=== PATIENT | male | born 1980 | race Caucasian/White ===

== ENCOUNTER 2018-11-22 21:34 | Emergency (ER) | payer MEDICARE ==
--- NOTE | 2018-11-22 21:51 | ER Document Report ---
ED Psych Disorder / Suicide - General Chief Complaint: Accidental Overdose Stated Complaint: POSSIBLE OVERDOSE Time Seen by Provider: 11/22/18 21:50 Mode of Arrival: Stretcher Information source: Parent, Law Enforcement, Emergency Med Personnel Cannot obtain history due to: Intoxicated, Uncooperative Notes: HISTORY OF PRESENT ILLNESS: Patient is a 38-year-old male with a past medical history of chronic substance abuse including methamphetamines and marijuana who presents with acute agitation and combative behavior after "binging on meth for 4 days." Onset: Prior to arrival Provocation: "A lot of meth" Quality: Aggression, agitation Radiation: None Severity: Severe, was given intramuscular Versed and Benadryl by EMS Timing: Constant SI/HI: Unknown Hallucinations: Unknown Current therapist: None Current treatment: None REVIEW OF SYSTEMS: A complete 12 point review of systems is unable to be obtained due to the patient's medical status. His parents at bedside as well as EMS are the only source of information. CONSTITUTIONAL : Denies fever or chills, no sweats. Denies recent illness. EENT: Denies eye, ear, throat, or mouth pain or symptoms. Denies nasal or sinus congestion. CARDIOVASCULAR: Denies chest pain. RESPIRATORY: Denies cough, cold, or chest congestion. Denies shortness of breath, difficulty breathing, or wheezing. GASTROINTESTINAL: Denies abdominal pain. Denies nausea, vomiting, or diarrhea. Denies constipation. GENITOURINARY: Denies difficulty urinating, painful urination, burning, frequency, or blood in urine. FEMALE GENITOURINARY: Denies vaginal bleeding, abnormal or irregular periods. Last menstrual period MUSCULOSKELETAL: Denies neck or back pain or joint pain or swelling. SKIN: Denies rash or skin lesions. HEMATOLOGIC : Denies easy bruising or bleeding. LYMPHATIC: Denies swollen, enlarged glands. NEUROLOGICAL: Denies altered mental status or loss of consciousness. Denies headache. Denies weakness or paralysis or loss of use of either side. Denies problems with gait or speech. Denies sensory or motor loss. PSYCHIATRIC: Positive for substance abuse. Denies anxiety or stress or depression. All other systems reviewed and negative. PHYSICAL EXAMINATION: GENERAL: Anxious and agitated-appearing, frail-appearing and in mild acute distress. HEAD: Atraumatic, normocephalic. No scalp deformity, depression, or crepitance. EYES: Pupils are 2mm and equal/round/reactive to light, extraocular movements intact, sclera anicteric, conjunctiva are normal. ENT: Nares patent bilaterally, oropharynx clear without exudates or palatal petechia. Moist mucous membranes. No tonsil hypertrophy. NECK: Normal range of motion, supple without lymphadenopathy. LUNGS: Breath sounds present, equal, and clear to auscultation bilaterally. No wheezes, rales, or rhonchi. HEART: Regular rate and rhythm without murmurs, rubs, or gallops. 2+ peripheral pulses. Normal capillary refill. ABDOMEN: Soft, nontender, nondistended. Normoactive bowel sounds. No guarding, no rebound. No masses appreciated. BACK: Normal contour, no midline tenderness. Rectal exam deferred. EXTREMITIES: Normal range of motion, no pitting or edema. No cyanosis. NEUROLOGICAL: No focal neurological deficits. Moves all extremities s pontaneously and on command. PSYCH: Anxious mood, normal affect, aggressive behavior. No suicidal t houghts/ideations. No homicidal thoughts/ideations. No hallucinations. SKIN: Warm, dry, normal turgor, no rashes or lesions noted. ASSESSMENT AND PLAN: This patient is a 38-year-old male who presents with acute aggressive behavior and psychosis in the setting of substance abuse. 1. Will obtain medical clearance and IVC the patient. 2. Will continue four-point restraints as well as needed sedation medications. TRAVEL OUTSIDE OF THE [place] IN LAST 30 DAYS: No - Related Data Allergies/Adverse Reactions: Sulfa (Sulfonamide Antibiotics) Allergy (Verified 08/26/15 13:51) Past Medical History - General Information source: Parent, Law Enforcement, Emergency Med Personnel Cannot obtain history due to: Intoxicated, Uncooperative - Social History Smoking Status: Current Some Day Smoker Chew tobacco use (# tins/day): No Frequency of alcohol use: None Drug Abuse: Methamphetamine Lives with: Family Family History: None Patient has suicidal ideation: No Patient has homicidal ideation: No - Past Medical History Cardiac Medical History: Reports: None Pulmonary Medical History: Reports: Hx Bronchitis Denies: Hx Tuberculosis EENT Medical History: Reports: None Neurological Medical History: Reports: None Endocrine Medical History: Reports: None Renal/ Medical History: Reports: None Malignancy Medical History: Reports None GI Medical History: Reports: None Musculoskeletal Medical History: Reports Hx Muscle Weakness Skin Medical History: Reports None Psychiatric Medical History: Reports: None Traumatic Medical History: Reports: None Infectious Medical History: Reports: Hx HIV - STATES HAS NOT BEEN ON MEDS IN PAST YEAR BECAUSE CANNOT AFORD THEM. Past Surgical History: Reports: Hx Orthopedic Surgery - knee surgery. Denies: Hx Pacemaker - Immunizations Immunizations up to date: Yes Hx Diphtheria, Pertussis, Tetanus Vaccination: No History of Influenza Vaccine for 07/2017 - 12/2017 Season: Unknown Physical Exam - Vital signs Vitals: Resp 20 11/22/18 21:38 Course - Re-evaluation Re-evalutation: 11/23/18 03:21 Patient continues to have intermittent episodes of agitation with somnolence, continues to be in four-point restraints for his own safety. Thus far, patient is medically cleared and will remain in four-point restraints and sedated until psychiatric evaluation in the morning. Patient is involuntarily committed. - Vital Signs Vital signs: Temp Pulse Resp BP Pulse Ox 19 104/77 100 11/23/18 02:01 11/23/18 02:01 11/23/18 02:00 - Laboratory Result Diagrams: 11/22/18 21:45 11/22/18 21:45 Laboratory results interpreted by me: 11/22/18 11/22/18 21:45 21:45 RBC 3.92 L Hgb 12.2 L Hct 34.6 L Potassium 3.3 L BUN 24 H AST 79 H Creatine Kinase 1488 H Salicylates < 1.0 L Acetaminophen < 10 L - EKG Interpretation by Al EKG shows normal: Sinus rhythm Rate: Tachycardia Rhythm: NSR [place]/QRS: No: Right axis deviation, Left axis deviation, RBBB, LBBB, IVCD, LAHB/LAFB, LPHB/LPFB, Bifasicular block Voltage: No: Increased voltage, Consistant with LVH, Decreased voltage, Th roughout, Limb leads P Waves: No: LIEN, LAE, Absent, AV Dissociation, Other Heart block present: No: 1st Degree, Mobitz 1, Mobitz 2, CHB (3rd degree block) When compared to previous EKG there are: Previous EKG unavailable Discharge - Discharge Clinical Impression: Polysubstance abuse, Acute psychosis Condition: Stable Disposition: PSYCH HOSP/UNIT
[2018-11-22 22:06] LABS: ABSOLUTE EOSINOPHILS # (AUTO) 0.1 10^3/uL (0.0-0.6); ABSOLUTE LYMPHOCYTES (AUTO) 1.4 10^3/uL (0.5-4.7); ABSOLUTE MONOCYTES (AUTO) 0.8 10^3/uL (0.1-1.4); ABSOLUTE NEUT (AUTO) 5.1 10^3/uL (1.7-8.2); BASOPHILS % (AUTO) 0.6 % (0-2); EOSINOPHILS % (AUTO) 0.7 % (0-6); HEMATOCRIT 34.6 % (37.9-51.0); HEMOGLOBIN 12.2 g/dL (13.5-17.0); LYMPHOCYTES % (AUTO) 18.5 % (13-45); MEAN CORPUSCULAR HEMOGLOBIN 31.1 pg (27.0-33.4); MEAN CORPUSCULAR HGB CONC 35.3 g/dL (32.0-36.0); MEAN CORPUSCULAR VOLUME 88 fl (80-97); MONOCYTES % (AUTO) 10.6 % (3-13); PLATELET COUNT 214 10^3/uL (150-450); RED BLOOD COUNT 3.92 10^6/uL (4.35-5.55); RED CELL DISTRIBUTION WIDTH 13.8 % (11.5-14.0); SEGMENTED NEUTROPHILS % (AUTO) 69.6 % (42-78); TOTAL CELLS COUNTED % (AUTO) 100 %; WHITE BLOOD COUNT 7.4 10^3/uL (4.0-10.5)
[2018-11-22 22:28] LABS: ALANINE AMINOTRANSFERASE 62 U/L (21-72); ALBUMIN 4.2 g/dL (3.5-5.0); ALKALINE PHOSPHATASE 84 U/L (38-126); ANION GAP 11 (5-19); ASPARTATE AMINO TRANSFERASE 79 U/L (17-59); BILIRUBIN,DIRECT 0.1 mg/dL (0.0-0.4); BILIRUBIN,TOTAL 0.6 mg/dL (0.2-1.3); BLOOD UREA NITROGEN 24 mg/dL (7-20); CALCIUM 8.8 mg/dL (8.4-10.2); CARBON DIOXIDE 24 mmol/L (22-30); CHLORIDE 103 mmol/L (98-107); CREATINE KINASE 1488 U/L (55-170); GLUCOSE 76 mg/dL (75-110); POTASSIUM 3.3 mmol/L (3.6-5.0); SODIUM 137.5 mmol/L (137-145); TOTAL PROTEIN 6.9 g/dL (6.3-8.2)
[2018-11-22 22:29] LABS: ACETAMINOPHEN < 10 ug/mL (10-30); ALCOHOL < 10 mg/dL (NONE DETECTED); SALICYLATE < 1.0 mg/dL (2.0-20.0)
[2018-11-22] MEDS ORDERED: LORAZEPAM INJ 2 MG/1 ML VIAL IV ONE (23:22)
[2018-11-22] MEDS ORDERED: HALOPERIDOL LACTATE INJ 5 MG/1 ML VIAL IV ONE (23:58)
[2018-11-22] MEDS ORDERED: DIPHENHYDRAMINE HCL 50 MG/ML VIAL IV ONE (23:59)
[2018-11-23] MEDS ORDERED: MIDAZOLAM 2 MG/2 ML INJ IV ONE (02:13)
--- NOTE | 2018-11-23 09:06 | ER Document Report ---
Doctor's Note Notes: 11/23/18 09:05 Vitals reviewed. Nursing notes reviewed. Patient was asleep and out of four- point restraints when I entered the room. He woke easily to verbal stimuli. He is in no acute distress. He denies any current complaints. Patient oriented to person place and time. He will be moved from the main side of the emergency room to the psychiatric side and is still awaiting psych evaluation. He is hemodynamically stable for psych eval.
--- NOTE | 2018-11-23 15:18 | PSYCHOLOGICAL NOTE ---
Psych Note - Psych Note Date seen by psych provider: 11/23/18 Time seen by psych provider: 10:15 Psych Note: Reason for Consult: Overdose Patient is a 38-year-old male with a past medical history of chronic substance abuse including methamphetamines and marijuana who presents with acute agitation and combative behavior after "binging on meth for 4 days." Patient is unable to engage in evaluation. Patient is still sleeping with moments of agitation. Clinician spoke with the patient's parents, Katie and Clarence. They disclose concern that the patient has recently made comments that he no longer wants to live. They disclosed that approximately 3 weeks ago the patient learned that his HIV status has been upgraded to AIDS. He was told that he needed follow-up because there was spots on his lungs. The patient has not done that and has since gone on a binge with drugs. Patient has significant drug history however the concern currently is that the patient is using drugs as a way to harm himself because of his medical condition. No medication recommendations at this time 292.89 (F15.222) methamphetamine intoxication with perceptual disturbances; with use disorder moderate Impression\\plan: Patient is recommended for IVC petition for overnight mental health observation. Patient is currently under the influence is unable to engage in evaluation. Patient family disclose concern that the patient is attempting to self harm because of learning his recent upgrade status of his HIV turn to AIDS. Patient will be reevaluated. Dr. Cotton was consulted and the care management this patient; attending physicians in agreement with recommendations and disposition.
[2018-11-23 18:37] LABS: AMORPHOUS SEDIMENT,URINE 1+ /HPF; APPEARANCE,URINE TURBID; BILIRUBIN,URINE NEGATIVE (NEGATIVE); COLOR,URINE YELLOW; GLUCOSE, URINE NEGATIVE (NEGATIVE); KETONES,URINE TRACE mg/dL (NEGATIVE); LEUKOCYTE ESTERASE,URINE NEGATIVE (NEGATIVE); NITRITE,URINE NEGATIVE (NEGATIVE); PROTEIN,URINE NEGATIVE (NEGATIVE); URINE SPECIFIC GRAVITY 1.029
[2018-11-23 18:43] LABS: URINE BARBITURATES SCREEN NEGATIVE; URINE BENZODIAZEPINES SCREEN UNCONFIRMED POSITIVE; URINE COCAINE SCREEN NEGATIVE; URINE MARIJUANA (THC) SCREEN NEGATIVE; URINE METHADONE SCREEN NEGATIVE; URINE PHENCYCLIDINE SCREEN NEGATIVE
--- NOTE | 2018-11-23 23:05 | EKG REPORT ---
SEVERITY:- BORDERLINE ECG - SINUS TACHYCARDIA BORDERLINE PROLONGED QT INTERVAL : Confirmed by: Lux Del Rio 23-Nov-2018 23:04:43
[2018-11-24] MEDS ORDERED: POTASSIUM CHLORIDE 10 MEQ CAPSULE.ER PO ONE (09:27)
--- NOTE | 2018-11-24 09:29 | ER Document Report ---
Doctor's Note Notes: 11/24/18 09:28 Rounds: Chart reviewed and patient interviewed. Patient being evaluated for suicidal ideation and suicidal attempt, having taken an overdose of methamphetamine. Patient is known HIV positive and recently told that he is also positive for AIDS. Lab studies showed potassium 3.3 and patient is being given 40 mEq of potassium p.o. this morning. His CPK was significantly elevated as well so I am repeating that test this morning. Vital signs are all essentially normal. Patient appears to be medically stable for transfer or discharge. Roseline Milian MD
[2018-11-24 10:09] LABS: ALANINE AMINOTRANSFERASE 45 U/L (21-72); ALBUMIN 3.7 g/dL (3.5-5.0); ALKALINE PHOSPHATASE 68 U/L (38-126); ANION GAP 9 (5-19); ASPARTATE AMINO TRANSFERASE 45 U/L (17-59); BILIRUBIN,DIRECT 0.1 mg/dL (0.0-0.4); BILIRUBIN,TOTAL 0.4 mg/dL (0.2-1.3); BLOOD UREA NITROGEN 12 mg/dL (7-20); CALCIUM 8.7 mg/dL (8.4-10.2); CARBON DIOXIDE 27 mmol/L (22-30); CHLORIDE 102 mmol/L (98-107); CREATINE KINASE 447 U/L (55-170); GLUCOSE 131 mg/dL (75-110); POTASSIUM 3.8 mmol/L (3.6-5.0); TOTAL PROTEIN 6.1 g/dL (6.3-8.2)
--- NOTE | 2018-11-25 10:24 | ER Document Report ---
Doctor's Note Notes: 11/25/18 10:19 Rounds: Chart reviewed and patient interviewed. No change. Vital signs are all essentially normal. Lab studies have been essentially normal. Patient appears to be medically stable for transfer or discharge. Patient is awaiting transfer under IVC. Roseline Milian MD
--- NOTE | 2018-11-25 15:30 | PSYCHOLOGICAL NOTE ---
Psych Note - Psych Note Date seen by psych provider: 11/24/18 Time seen by psych provider: 08:55 Psych Note: Reason for Consult: Overdose Patient is a 38-year-old male with a past medical history of chronic substance abuse including methamphetamines and marijuana who presents with acute agitation and combative behavior after "binging on meth for 4 days." Patient asked if he was trying to harm himself he does not respond. When asked why he took so much he reports "I have a history of using." Patient became very tearful and reports that he feels alone. He reports he has no one to talk to. He discloses difficulty in dealing with his medical diagnosis "does not want to be here anymore." Patient was asked if he had thoughts of harming himself which she confirms he has thoughts of wanting to . He reports that all the thoughts have been chronic recently has gotten significantly worse. Patient becomes very difficult to understand at this point because of crying and covering his face. Patient reports "I just don't want to do this anymore." Patient is alert and orientated to person, place, time and circumstance. Mood is dysphoric with tearful affect. Patient endorses suicidal ideation denies homicidal ideation. Delusions are absent behaviors congruent with an intact reality based presentation i.e. organized and linear thought process. Eye contact is fair. Conversational speech is overall within normal rate, tone and prosody; clinician notes patient does have moments where it is difficult to understand because of his crying. Intellectual abilities appear to be within the average range. Attention and concentration are fair. Insight, judgment, impulse control are poor. 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 Patient is very despondent and tearful reports thoughts of wanting to . He confirms overdosing on methamphetamine. He reports he has a history of drug abuse however approximately 3 weeks ago his medical diagnosis of HIV was upgraded to AIDS. Patient reports feeling alone with no one to talk to. Since patient has found out about upgrading diagnosis he has engaged in reckless behavior in the hope to . Dr. Cotton was consulted and the care management this patient; attending physicians in agreement with recommendations and disposition.
--- NOTE | 2018-11-25 15:36 | PSYCHOLOGICAL NOTE ---
Psych Note - Psych Note Date seen by psych provider: 11/25/18 Time seen by psych provider: 09:00 Psych Note: Reason for Consult: Overdose Patient is a 38-year-old male with a past medical history of chronic substance abuse including methamphetamines and marijuana who presents with acute agitation and combative behavior after "binging on meth for 4 days." Check-in conducted with patient Patient's mood is dysphoric with flat affect. Clinician notes patient oskar barajas lays in bed with the light off. He seldom engages with staff. Patient reports he would like help with treatment so he is not feeling so bad. Clinician notes patient's mother has been asked to leave the hospital and currently has been told she is unable to visit the patient. She was asked multiple times to comply with hospital policy and procedures and was repeatedly being noncompliant. For the well-being of the patient's treatment she has been asked for no visiting. 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 Clinician notes patient is despondent with flat affect. He is very compliant however seldom engages with staff and just lays in his room with the light off. Since patient has found out about upgrading diagnosis he has engaged in reckless behavior in the hope to . Dr. Cotton was consulted and the care management this patient; attending physicians in agreement with recommendations and disposition.
[2018-11-25] MEDS ORDERED: ACETAMINOPHEN 325 MG TABLET PO ONE (18:46)
[2018-11-26] MEDS ORDERED: ACETAMINOPHEN 325 MG TABLET PO ONE (07:16)
--- NOTE | 2018-11-26 09:52 | ER Document Report ---
ED General - General Chief Complaint: Accidental Overdose Stated Complaint: POSSIBLE OVERDOSE Time Seen by Provider: 11/22/18 21:50 Primary Care Provider: [facility] [Outside] - Follow up as needed Mode of Arrival: Stretcher TRAVEL OUTSIDE OF THE [place] IN LAST 30 DAYS: No - HPI Notes: Patient presented to the emergency department on November 22. He had been on a binge of using crystal meth. He is no longer exhibiting withdrawal symptoms. Currently he is anxious for discharge. He has been offered substance abuse counseling, he states he would like to "look around" before he accepts this. He plans on being discharged into the care of his mother. He is concerned about blisters in his mouth and that there may be an infection. He denies any fevers. No sore throat or vomiting. He has an appointment with his HIV clinic on November 29. - Related Data Allergies/Adverse Reactions: Sulfa (Sulfonamide Antibiotics) Allergy (Verified 08/26/15 13:51) Past Medical History - General Information source: Parent, Law Enforcement, Emergency Med Personnel - Social History Smoking Status: Current Some Day Smoker Chew tobacco use (# tins/day): No Frequency of alcohol use: None Drug Abuse: Methamphetamine Lives with: Family Family History: None Patient has suicidal ideation: No Patient has homicidal ideation: No - Past Medical History Cardiac Medical History: Reports: None Pulmonary Medical History: Reports: Hx Bronchitis Denies: Hx Tuberculosis EENT Medical History: Reports: None Neurological Medical History: Reports: None Endocrine Medical History: Reports: None Renal/ Medical History: Reports: None. Denies: Hx Peritoneal Dialysis Malignancy Medical History: Reports None GI Medical History: Reports: None Musculoskeletal Medical History: Reports Hx Muscle Weakness Skin Medical History: Reports None Psychiatric Medical History: Reports: None Traumatic Medical History: Reports: None Infectious Medical History: Reports: Hx HIV - STATES HAS NOT BEEN ON MEDS IN PAST YEAR BECAUSE CANNOT AFORD THEM. Past Surgical History: Reports: Hx Orthopedic Surgery - knee surgery. Denies: Hx Pacemaker - Immunizations Immunizations up to date: Yes Hx Diphtheria, Pertussis, Tetanus Vaccination: No Physical Exam - Vital signs Vitals: Temp Resp 98.7 F 20 11/22/18 21:38 11/22/18 21:38 - General General appearance: Appears well In distress: None - HEENT Head: Normocephalic Pupils: PERRL Mucous membranes: Other - Respiratory Respiratory status: No respiratory distress Breath sounds: Normal - Cardiovascular Rhythm: Regular - Psychological Associated symptoms: Normal affect, Normal mood - Skin Skin Temperature: Warm Skin Moisture: Dry Course - Re-evaluation Re-evalutation: 11/26/18 09:48 Patient seen and evaluated. He is anxious for discharge. He denies any suicidal or homicidal ideation. He has an appointment for follow-up with his HIV clinic upcoming. Feel safe for discharge. - Vital Signs Vital signs: Temp Pulse Resp BP Pulse Ox 98.0 F 89 14 118/73 97 11/26/18 04:22 11/26/18 04:22 11/26/18 04:22 11/26/18 04:22 11/26/18 04:22 - Laboratory Result Diagrams: 11/22/18 21:45 11/24/18 09:34 Laboratory results interpreted by me: 11/22/18 11/22/18 11/23/18 21:45 21:45 16:48 RBC 3.92 L Hgb 12.2 L Hct 34.6 L Potassium 3.3 L BUN 24 H Glucose AST 79 H Creatine Kinase 1488 H Total Protein Urine Ketones TRACE H Urine Urobilinogen 2.0 H Salicylates < 1.0 L Acetaminophen < 10 L 11/24/18 09:34 RBC Hgb Hct Potassium BUN Glucose 131 H AST Creatine Kinase 447 H Total Protein 6.1 L Urine Ketones Urine Urobilinogen Salicylates Acetaminophen Discharge - Discharge Clinical Impression: Acute psychosis, Polysubstance abuse Condition: Stable Disposition: HOME, SELF-CARE Additional Instructions: You have been evaluated both medical and behavioral health teams have been deemed appropriate for discharge. You are highly encouraged to follow through with residential treatment for substance abuse. You have been provided resources for both residential, outpatient and intense outpatient services, and mobile crisis contact information. AMPHETAMINE / METHAMPHETAMINE ABUSE: Amphetamines are addicting stimulants. Amphetamines overstimulate the nervous system and give a false feeling of power and mastery. These drugs may be obtained as prescription pills for weight loss, narcolepsy, or attention-deficit disorder. More often they're bought as an illegal street drug, methamphetamine (crank, crystal, speed). Using amphetamines repeatedly can lead to serious medical problems including malnutrition, severe depression, and paranoia. It can take increasing amounts to feel good. Eventually, there will be a "burn out." When you go off amphetamines there is a period of depression that may last for weeks or even months. High doses of amphetamines can cause seizures, confusion, hallucinations, delusions, high blood pressure, muscle damage, heart damage, or sudden . Many times these deadly complications occur even with "normal" doses. Injection of amphetamines is risky for developing abscesses, endocarditis (heart infection), pneumonia, and AIDS. Withdrawal from amphetamines often causes anxiety, depression, and drug cravings. Some users become paranoid and psychotic. There may be cramps, nausea, and vomiting. Many treatment programs are available, but you must make the decision to quit. Medication can be prescribed to control the symptoms of amphetamine toxicity (beta blockers or benzodiazepines). Withdrawal symptoms may require tranquilizers. FOLLOW-UP CARE: If you have been referred to a physician for follow-up care, call the physicians office for an appointment as you were instructed or within the next two days. If you experience worsening or a significant change in your symptoms, notify the physician immediately or return to the Emergency Department at any time for re-evaluation. Prescriptions: Nystatin/Dexameth/Diphen [Magic Mouthwash (Omh Formula) Susp] 5 ml PO QID #120 ml Referrals: [facility] [Outside] - Follow up as needed
--- NOTE | 2018-11-26 10:30 | PSYCHOLOGICAL NOTE ---
Psych Note - Psych Note Date seen by psych provider: 11/26/18 Time seen by psych provider: 07:55 Psych Note: Reason for Consult: Overdose Patient is a 38-year-old male with a past medical history of chronic substance abuse including methamphetamines and marijuana who presents with acute agitation and combative behavior after "binging on meth for 4 days." Check-in conducted with patient Patient adamantly denies suicidal ideation today reporting that he had been goi ng through withdrawals. He discloses that he is a "brooks" meaning that he can go months without using it all and then will go days nonstop using. He discloses that it takes him many days to recover and that was why he was so emotional however adamantly denies thoughts of wanting to kill himself. He reports that he has been living with his medical diagnosis for 5 years. 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 He confirms he is currently working and just recently bought a car and is concerned about making sure that he does not lose his job so he can pay his car bill. Patient reports that he would like information on rehab but would just prefer to receive the resources so he can "look over my avenues available." Clinician notes patient sits up and openly engages with clinician with euthymic mood and congruent affect. 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 Patient clearly demonstrates forward thought processes with euthymic mood and congruent affect. Patient discusses plans for the future with clinician such as wanting to get back into modeling and worry about ensuring he gets to work as scheduled so he does not lose his car. Patient reports he would like resources for substance abuse; these have been provided. Patient identifies dysphoric mood and connection to coming down off of methamphetamine which she identifies as typical process for him. Patient adamantly denies suicidal ideation and reports that his medical diagnosis is something that he is come to terms with. Patient's mother agrees to be part of patient's discharge plan i.e. no access to medications and weapons and follows through with mental health recommendations. Dr. Cotton was consulted and the care management this patient; attending physicians in agreement with recommendations and disposition.
[2018-11-26 11:57] VITALS: BP 118/84
== END 2018-11-26 12:05 | disposition home or self-care (01) ==
LOC: ER 21:34
DX: F15.122 Other stimulant abuse with intoxication with perceptual disturbance (principal); F23 Brief psychotic disorder; F12.10 Cannabis abuse, uncomplicated; F17.200 Nicotine dependence, unspecified, uncomplicated; R00.0 Tachycardia, unspecified; R53.1 Weakness; Z88.2 Allergy status to sulfonamides; Z21 Asymptomatic human immunodeficiency virus [HIV] infection status; Z78.1 Physical restraint status
CPT/HCPCS: 93005; 36415; 80307 ×4; 82550; 85025; 80053; 81001; 93010; A9270 ×3; J2250; J1200; J1630; J2060

== ENCOUNTER 2019-02-17 14:11 | Emergency (ER) | payer MEDICARE ==
[2019-02-17] MEDS ORDERED: HALOPERIDOL LACTATE INJ 5 MG/1 ML VIAL IV ONE (14:58)
[2019-02-17] MEDS ORDERED: DIPHENHYDRAMINE HCL 50 MG/ML VIAL IV ONE ×2 (14:58→15:19)
[2019-02-17 15:12] LABS: ALANINE AMINOTRANSFERASE 45 U/L (21-72); ALBUMIN 5.7 g/dL (3.5-5.0); ALKALINE PHOSPHATASE 94 U/L (38-126); ASPARTATE AMINO TRANSFERASE 49 U/L (17-59); BILIRUBIN,DIRECT 0.4 mg/dL (0.0-0.4); BILIRUBIN,TOTAL 0.9 mg/dL (0.2-1.3); BLOOD UREA NITROGEN 26 mg/dL (7-20); CALCIUM 11.2 mg/dL (8.4-10.2); CHLORIDE 102 mmol/L (98-107); CREATINE KINASE 563 U/L (55-170); GLUCOSE 84 mg/dL (75-110); POTASSIUM 4.3 mmol/L (3.6-5.0); TOTAL PROTEIN 9.6 g/dL (6.3-8.2)
[2019-02-17 15:13] LABS: ACETAMINOPHEN < 10 ug/mL (10-30); SALICYLATE < 1.0 mg/dL (2.0-20.0)
[2019-02-17 15:19] LABS: ABSOLUTE BASOPHILS # (AUTO) 0.1 10^3/uL (0.0-0.2); ABSOLUTE LYMPHOCYTES (AUTO) 1.6 10^3/uL (0.5-4.7); ABSOLUTE MONOCYTES (AUTO) 1.1 10^3/uL (0.1-1.4); ABSOLUTE NEUT (AUTO) 10.5 10^3/uL (1.7-8.2); ANION GAP 25 (5-19); BASOPHILS % (AUTO) 0.7 % (0-2); CARBON DIOXIDE 20 mmol/L (22-30); EOSINOPHILS % (AUTO) 0.1 % (0-6); HEMATOCRIT 45.8 % (37.9-51.0); HEMOGLOBIN 15.3 g/dL (13.5-17.0); LYMPHOCYTES % (AUTO) 12.2 % (13-45); MEAN CORPUSCULAR HEMOGLOBIN 29.7 pg (27.0-33.4); MEAN CORPUSCULAR HGB CONC 33.3 g/dL (32.0-36.0); MEAN CORPUSCULAR VOLUME 89 fl (80-97); MONOCYTES % (AUTO) 8.1 % (3-13); PLATELET COUNT 282 10^3/uL (150-450); RED BLOOD COUNT 5.14 10^6/uL (4.35-5.55); RED CELL DISTRIBUTION WIDTH 14.2 % (11.5-14.0); SEGMENTED NEUTROPHILS % (AUTO) 78.9 % (42-78); SODIUM 147.3 mmol/L (137-145); TOTAL CELLS COUNTED % (AUTO) 100 %; WHITE BLOOD COUNT 13.3 10^3/uL (4.0-10.5)
[2019-02-17] MEDS ORDERED: LORAZEPAM INJ 2 MG/1 ML VIAL IV ONE (15:19)
[2019-02-17] MEDS ORDERED: NORMAL SALINE 1000 ML 1,000 ML IV ONE ×2 (15:19→15:29)
[2019-02-17 15:25] LABS: CREATINE KINASE MB 5.31 ng/mL (<4.55)
[2019-02-17 15:26] LABS: TROPONIN I < 0.012 ng/mL
--- NOTE | 2019-02-17 16:07 | RADIOLOGY REPORT (SQ) ---
EXAM DESCRIPTION: CHEST SINGLE VIEW COMPLETED DATE/TIME: 02/17/2019 3:59 pm REASON FOR STUDY: methamphetamine OD COMPARISON: 09/19/2012 NUMBER OF VIEWS: One view. TECHNIQUE: Single frontal radiographic image of the chest acquired. LIMITATIONS: None. FINDINGS: LUNGS AND PLEURA: Lung briggs are hyperexpanded but clear. No consolidation. MEDIASTINUM AND HILAR STRUCTURES: Stable in appearance. HEART AND VASCULAR STRUCTURES: Stable appearance. SUPPORT DEVICES: None. BONES: No acute findings. OTHER: No other significant finding. IMPRESSION: No acute findings in the chest. Mild hyperexpansion. TECHNICAL DOCUMENTATION: JOB ID: [id number]- All Rights Reserved Reading location - IP/workstation name: [email or web address]
[2019-02-17 16:38] LABS: APPEARANCE,URINE CLOUDY; BILIRUBIN,URINE NEGATIVE (NEGATIVE); GLUCOSE, URINE NEGATIVE (NEGATIVE); KETONES,URINE TRACE mg/dL (NEGATIVE); LEUKOCYTE ESTERASE,URINE NEGATIVE (NEGATIVE); NITRITE,URINE NEGATIVE (NEGATIVE); PROTEIN,URINE 100 mg/dL (NEGATIVE); URINE SPECIFIC GRAVITY 1.027; UROBILINOGEN,URINE NEGATIVE mg/dL (<2.0)
[2019-02-17 16:39] LABS: COLOR,URINE YELLOW
[2019-02-17 17:04] LABS: URINE BARBITURATES SCREEN NEGATIVE; URINE COCAINE SCREEN NEGATIVE; URINE MARIJUANA (THC) SCREEN NEGATIVE; URINE METHADONE SCREEN NEGATIVE; URINE PHENCYCLIDINE SCREEN NEGATIVE
[2019-02-17 17:09] LABS: URINE BENZODIAZEPINES SCREEN UNCONFIRMED POSITIVE
[2019-02-17] MEDS ORDERED: THIAMINE HCL INJ 200 MG/2 ML VIAL IV ONE (18:23)
[2019-02-17] MEDS ORDERED: DEXTROSE 5%-NORMAL SALINE 1,000 ML IV ONE (18:24)
--- NOTE | 2019-02-17 18:51 | EKG REPORT ---
SEVERITY:- OTHERWISE NORMAL ECG - SINUS TACHYCARDIA : Confirmed by: Lux Del Rio 17-Feb-2019 18:50:29
[2019-02-17] MEDS ORDERED: DEXTROSE 5%-LACTATED RINGERS 1,000 ML IV ONE (21:52)
--- NOTE | 2019-02-17 21:56 | ER Document Report ---
Addendum entered and electronically signed by REI DE LEON DO 02/18/19 16:36: Discharge - Discharge Clinical Impression: Methamphetamine abuse, Dehydration, Delirium, Tachycardia Condition: Stable Disposition: HOME, SELF-CARE Additional Instructions: You have been evaluated both medical and behavioral health teams have been deemed appropriate for discharge. You have been provided resources for mental health, substance abuse treatment, detox, economic resources to include senior living, food villalta, and soup amado in addition to mobile crisis contact information. You are highly encouraged to continue contacting the [facility], at [phone], every morning at 8 AM to see if there is bed availability. They already have yo demographic information in her system to assist this process. You also recommended to contact integrated family services, [facility], for continued assistance in substance abuse treatment. AMPHETAMINE / METHAMPHETAMINE ABUSE: Amphetamines are addicting stimulants. Amphetamines overstimulate the nervous system and give a false feeling of power and mastery. These drugs may be obta ined as prescription pills for weight loss, narcolepsy, or attention-deficit disorder. More often they're bought as an illegal street drug, methamphetamine (crank, crystal, speed). Using amphetamines repeatedly can lead to serious medical problems including malnutrition, severe depression, and paranoia. It can take increasing amounts to feel good. Eventually, there will be a "burn out." When you go off amphetamines there is a period of depression that may last for weeks or even months. High doses of amphetamines can cause seizures, confusion, hallucinations, delusions, high blood pressure, muscle damage, heart damage, or sudden . Many times these deadly complications occur even with "normal" doses. Injection of amphetamines is risky for developing abscesses, endocarditis (heart infection), pneumonia, and AIDS. Withdrawal from amphetamines often causes anxiety, depression, and drug cravings. Some users become paranoid and psychotic. There may be cramps, nausea, and vomiting. Many treatment programs are available, but you must make the decision to quit. Medication can be prescribed to control the symptoms of amphetamine toxicity (beta blockers or benzodiazepines). Withdrawal symptoms may require tranquilizers. FOLLOW-UP CARE: If you have been referred to a physician for follow-up care, call the physicians office for an appointment as you were instructed or within the next two days. If you experience worsening or a significant change in your symptoms, notify the physician immediately or return to the Emergency Department at any time for re-evaluation. Referrals: [facility] [Outside] - Follow up as needed Scribe Attestation: 02/17/19 18:25 I personally performed the services described in the documentation, reviewed and edited the documentation which was dictated to the scribe in my presence, and it accurately records my words and actions. Addendum entered and electronically signed by GIANNI PORRAS LCSWA 02/18/19 16:01: Discharge - Discharge Clinical Impression: Methamphetamine abuse, Dehydration, Delirium, Tachycardia Condition: Stable Disposition: HOME, SELF-CARE Additional Instructions: You have been evaluated both medical and behavioral health teams have been deemed appropriate for discharge. You have been provided resources for mental health, substance abuse treatment, detox, economic resources to include senior living, food villalta, and soup amado in addition to mobile crisis contact information. You are highly encouraged to continue contacting the [facility], at [phone], every morning at 8 AM to see if there is bed availability. They already have your demographic information in her system to assist this process. You also recommended to contact integrated family services, [facility], for continued assistance in substance abuse treatment. AMPHETAMINE / METHAMPHETAMINE ABUSE: Amphetamines are addicting stimulants. Amphetamines overstimulate the nervous system and give a false feeling of power and mastery. These drugs may be obtained as prescription pills for weight loss, narcolepsy, or attention-deficit disorder. More often they're bought as an illegal street drug, methamphetamine (crank, crystal, speed). Using amphetamines repeatedly can lead to serious medical problems including malnutrition, severe depression, and paranoia. It can take increasing amounts to feel good. Eventually, there will be a "burn out." When you go off amphetamines there is a period of depression that may last for weeks or even months. High doses of amphetamines can cause seizures, confusion, hallucinations, delusions, high blood pressure, muscle damage, heart damage, or sudden . Many times these deadly complications occur even with "normal" doses. Injection of amphetamines is risky for developing abscesses, endocarditis (heart infection), pneumonia, and AIDS. Withdrawal from amphetamines often causes anxiety, depression, and drug cravings. Some users become paranoid and psychotic. There may be cramps, nausea, and vomiting. Many treatment programs are available, but you must make the decision to quit. Medication can be prescribed to control the symptoms of amphetamine toxicity (beta blockers or benzodiazepines). Withdrawal symptoms may require tranquilizers. FOLLOW-UP CARE: If you have been referred to a physician for follow-up care, call the physicians office for an appointment as you were instructed or within the next two days. If you experience worsening or a significant change in your symptoms, notify the physician immediately or return to the Emergency Department at any time for re-evaluation. Referrals: [facility] [Outside] - Follow up as needed Scribe Attestation: 02/17/19 18:25 I personally performed the services described in the documentation, reviewed and edited the documentation which was dictated to the scribe in my presence, and it accurately records my words and actions. Original Note: Entered by JAMIE CORADO SCRIBE 02/17/19 1456 Acting as scribe for:PIERRE BLACKMON MD ED Substance Abuse / Acc. OD - General Chief Complaint: Possible Overdose Stated Complaint: PSYCH Time Seen by Provider: 02/17/19 14:39 Mode of Arrival: Ambulatory Information source: Patient Notes: Patient is a 38 year old male presenting to the emergency department via EMS due to methamphetamine abuse. Patient is contorting and writhing in bed and does not provided a significant history. According to medical records, patient has a history of methamphetamine and marijuana abuse with a reported history of going on "meth binges". Patient presented to the emergency department in 11/2018 due to similar symptoms. TRAVEL OUTSIDE OF THE [place] IN LAST 30 DAYS: No - Related Data Allergies/Adverse Reactions: Sulfa (Sulfonamide Antibiotics) Allergy (Verified 02/17/19 14:36) Past Medical History - General Information source: Emergency Med Personnel, [facility] Records - Social History Smoking Status: Unknown if Ever Smoked Drug Abuse: Methamphetamine Family History: None Patient has suicidal ideation: No Patient has homicidal ideation: No Pulmonary Medical History: Reports: Hx Bronchitis Musculoskeletal Medical History: Reports Hx Muscle Weakness Infectious Medical History: Reports: Hx HIV - STATES HAS NOT BEEN ON MEDS IN PAST YEAR BECAUSE CANNOT AFORD THEM. Past Surgical History: Reports: Hx Orthopedic Surgery - knee surgery - Immunizations Immunizations up to date: Yes Hx Diphtheria, Pertussis, Tetanus Vaccination: No Review of Systems - Review of Systems -: Yes ROS unobtainable due to patient's medical condition Physical Exam - Vital signs Vitals: Resp Pulse Ox 34 H 95 02/17/19 14:25 02/17/19 14:25 - Notes Notes: GENERAL: Alert. In 4 point restraints. Writhing and contorting in bed. Does not answer any questions. HEAD: Normocephalic, atraumatic. EYES: Pupils equal, round, and reactive to light. Extraocular movements intact. ENT: Oral mucosa dry, tongue midline. NECK: Full range of motion. Supple. Trachea midline. LUNGS: Clear to auscultation bilaterally, no wheezes, rales, or rhonchi. No respiratory distress. HEART: Tachycardic with a rate of 155 on bedside cafeteria monitor per my interpretation. No murmurs, gallops, or rubs. ABDOMEN: Soft, non-tender. Non-distended. Bowel sounds present in all 4 quadrants. No guarding, rigidity, or rebound. GENITALS:Mild priapism. The patient has a large aluminum type ring around his penis and testicles. This ring was easily removed by pushing one testicle through the ring and then pulling it off. EXTREMITIES: Moves all 4 extremities spontaneously. No edema, radial and dorsalis pedis pulses 2/4 bilaterally. No cyanosis. NEUROLOGICAL: Alert. In 4 point restraints. Writhing and contorting in bed. Does not answer any questions. PSYCH: In 4 point restraints. Writhing and contorting in bed. Does not answer any questions. SKIN: Warm, dry, normal turgor. No rashes or lesions noted. Course - Vital Signs Vital signs: Temp Pulse Resp BP Pulse Ox 98.8 F 19 114/87 H 99 02/17/19 20:00 02/17/19 21:21 02/17/19 21:21 02/17/19 21:21 - Laboratory Result Diagrams: 02/17/19 14:23 02/17/19 14:23 Laboratory results interpreted by me: 02/17/19 02/17/19 02/17/19 14:23 14:23 14:23 WBC 13.3 H RDW 14.2 H Seg Neutrophils % 78.9 H Lymphocytes % 12.2 L Absolute Neutrophils 10.5 H Sodium 147.3 H Carbon Dioxide 20 L Anion Gap 25 H BUN 26 H Creatinine 1.66 H Est GFR ( Amer) 56 L Est GFR (Non-Af Amer) 47 L Lactic Acid Calcium 11.2 H Magnesium 2.4 H Creatine Kinase 563 H CK-MB (CK-2) 5.31 H Total Protein 9.6 H Albumin 5.7 H Urine Protein Urine Ketones Urine Blood Salicylates < 1.0 L Acetaminophen < 10 L 02/17/19 02/17/19 16:11 16:11 WBC RDW Seg Neutrophils % Lymphocytes % Absolute Neutrophils Sodium Carbon Dioxide Anion Gap BUN Creatinine Est GFR ( Amer) Est GFR (Non-Af Amer) Lactic Acid 2.2 H Calcium Magnesium Creatine Kinase CK-MB (CK-2) Total Protein Albumin Urine Protein 100 H Urine Ketones TRACE H Urine Blood SMALL H Salicylates Acetaminophen - EKG Interpretation by Me EKG shows normal: Sinus rhythm, [place], Intervals, QRS Complexes, ST-T Waves Rate: Tachycardia - 142 Critical Care Note - Critical Care Note Total time excluding time spent on procedures (mins): 45 Discharge - Discharge Clinical Impression: Methamphetamine abuse, Dehydration, Delirium, Tachycardia Condition: Stable Disposition: PSYCH HOSP/UNIT Scribe Attestation: 02/17/19 18:25 I personally performed the services described in the documentation, reviewed and edited the documentation which was dictated to the scribe in my presence, and it accurately records my words and actions. I personally performed the services described in the documentation, reviewed and edited the documentation which was dictated to the scribe in my presence, and it accurately records my words and actions.
--- NOTE | 2019-02-18 09:10 | ER Document Report ---
Doctor's Note Notes: 02/18/19 09:10 HPI; Patient is a 38 year old male presenting to the emergency department via EMS due to methamphetamine abuse. Patient is contorting and writhing in bed and does not provided a significant history. According to medical records, patient has a history of methamphetamine and marijuana abuse with a reported history of going on "meth binges". Patient presented to the emergency department in 11/2018 due to similar symptoms. As the rounding physician this AM, I assessed the patient's labs, vitals, and records. No concerning findings this morning. Patient denies any acute complaints. Patient is cleared for disposition by psychiatry. Patient will be discharged home with recommendations to follow-up with integrated family services, mobile crisis. Also advised to call the [facility] daily to see if there is any bed availability. 02/18/19 09:10 02/18/19 16:35 PHYSICAL EXAMINATION: GENERAL: Well-appearing, well-nourished and in no acute distress. HEAD: Atraumatic, normocephalic. EYES: Pupils equal round extraocular movements intact, conjunctiva are normal. ENT: Nares patent NECK: Normal range of motion LUNGS: No respiratory distress Musculoskeletal: Normal range of motion NEUROLOGICAL: Normal speech, normal gait. PSYCH: Normal mood, normal affect. SKIN: Warm, Dry, normal turgor, no rashes or lesions noted.
[2019-02-18] MEDS ORDERED: NORMAL SALINE 1000 ML 1,000 ML IV PRN (09:47)
--- NOTE | 2019-02-18 15:59 | PSYCHOLOGICAL NOTE ---
Psych Note - Psych Note Date seen by psych provider: 02/18/19 Time seen by psych provider: 07:15 Psych Note: Reason for Consult: AMS Patient is a 38 year old male presenting to the emergency department via EMS due to methamphetamine abuse. Clinician contacted the [facility], they have a bed and conducted interview with patient. Clinician spoke with [facility] marketing sales representative, she disclosed they are unable to take the patient due to Medicare not covering detox from methamphetamine. Clinician contacted the [facility]; they currently have no beds but took demographic information and stated the patient show call every morning at 8am to check availability. They continued to recommend the patient contact [facility] or [facility] for continued assistance. No medication recommendations at this time 292.9 (F15.99) unspecified stimulant related disorder 311 (F32.9) unspecified depressive disorder; at this time it is unclear if patient's chronic depression is related to his substance abuse or medical condition. Impression\plan: Patient is cleared from acute psychiatric services. Patient is no longer under the influence denies thoughts of harming others. Patient confirms chronic passive suicidal ideation however denies current symptoms. Behavior health team was unable to secure a voluntary detox bed for the patient. Patient was provided resources for the local area including mobile crisis contact information. Patient is recommended to continue calling the [facility] to check for availability. Patient is also recommended to contact mobile crisis for continued assistance in obtaining substance abuse treatment. Patient's mother reports that she does not want the patient to return home to her because of his increased verbal disrespect to her and ongoing substance use. Patient was provided economic resource list to include jail information, soup kitchen, food villalta. Patient's mother discloses she will assist the patient and seeing if there is any other friend or family member that will take him in. Dr. Cotton was consulted and the care management of this patient; attending physicians in agreement with recommendations and disposition.
[2019-02-18 18:28] VITALS: BP 110/78
== END 2019-02-18 18:32 | disposition home or self-care (01) ==
LOC: ER 14:11
DX: E86.0 Dehydration (principal); R00.0 Tachycardia, unspecified; F32.9 Major depressive disorder, single episode, unspecified; F15.99 Other stimulant use, unspecified with unspecified stimulant-induced disorder; R41.0 Disorientation, unspecified; B20 Human immunodeficiency virus [HIV] disease; Z88.2 Allergy status to sulfonamides
CPT/HCPCS: 93005; 96376; 99285; 96361; 51702; 96374; 96375; 36415; 87040; 82553; 82550; 83735; 80307 ×3; 85025; 80053; 81001; 84484; 93010; 83605; 71045; J1200; J1630; J2060; J3411; J7030 ×2; J7042; J7121

== ENCOUNTER 2019-03-02 17:13 | Inpatient (IN) | payer MEDICARE ==
[2019-03-02 18:21] LABS: ABSOLUTE LYMPHOCYTES (AUTO) 1.9 10^3/uL (0.5-4.7); ABSOLUTE MONOCYTES (AUTO) 1.4 10^3/uL (0.1-1.4); ABSOLUTE NEUT (AUTO) 14.1 10^3/uL (1.7-8.2); BASOPHILS % (AUTO) 0.2 % (0-2); HEMOGLOBIN 12.4 g/dL (13.5-17.0); LYMPHOCYTES % (AUTO) 10.7 % (13-45); MEAN CORPUSCULAR HEMOGLOBIN 29.8 pg (27.0-33.4); MEAN CORPUSCULAR HGB CONC 33.6 g/dL (32.0-36.0); MEAN CORPUSCULAR VOLUME 89 fl (80-97); MONOCYTES % (AUTO) 7.9 % (3-13); PLATELET COUNT 206 10^3/uL (150-450); RED BLOOD COUNT 4.17 10^6/uL (4.35-5.55); RED CELL DISTRIBUTION WIDTH 14.2 % (11.5-14.0); SEGMENTED NEUTROPHILS % (AUTO) 81.2 % (42-78); TOTAL CELLS COUNTED % (AUTO) 100 %; WHITE BLOOD COUNT 17.4 10^3/uL (4.0-10.5)
[2019-03-02 18:30] LABS: ACETAMINOPHEN 18 ug/mL (10-30); ALANINE AMINOTRANSFERASE 108 U/L (21-72); ALBUMIN 3.4 g/dL (3.5-5.0); ALKALINE PHOSPHATASE 70 U/L (38-126); ANION GAP 19 (5-19); ASPARTATE AMINO TRANSFERASE 186 U/L (17-59); BILIRUBIN,DIRECT 0.5 mg/dL (0.0-0.4); BILIRUBIN,TOTAL 0.9 mg/dL (0.2-1.3); BLOOD UREA NITROGEN 59 mg/dL (7-20); CALCIUM 7.8 mg/dL (8.4-10.2); CARBON DIOXIDE 14 mmol/L (22-30); CHLORIDE 106 mmol/L (98-107); GLUCOSE 121 mg/dL (75-110); SODIUM 138.7 mmol/L (137-145); TOTAL PROTEIN 5.9 g/dL (6.3-8.2)
[2019-03-02 18:35] LABS: ALCOHOL < 10 mg/dL (NONE DETECTED); SALICYLATE < 1.0 mg/dL (2.0-20.0)
[2019-03-02] MEDS: NORMAL SALINE 1000 ML 1,000 ML IV PRN ×2 (18:55→18:58)
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
[2019-03-02 20:22] LABS: VENOUS BLOOD PCO2 39.8 mmHg (35-63); VENOUS BLOOD PH 7.22 (7.30-7.42)
[2019-03-02] MEDS ORDERED: AZITHROMYCIN INJ 500 MG VIAL IV ONE (20:40)
[2019-03-02] MEDS ORDERED: CEFTRIAXONE 1 GM/D5W RTU 1 GM/50 ML RTUPB IV ONE (20:41)
--- NOTE | 2019-03-02 21:07 | RADIOLOGY REPORT (SQ) ---
EXAM DESCRIPTION: XR CHEST 1 VIEW COMPLETED DATE/TME: 03/02/2019 19:40 CLINICAL HISTORY: 38 years Male sob COMPARISON: 02/17/2019. FINDINGS: Heart size and mediastinal contour appear within normal limits. There has been development of infiltrate in the lung bases concerning for pneumonia. Small effusions are not excluded. Upper lobes appear clear. IMPRESSION: Bilateral basilar infiltrates concerning for pneumonia. Small effusions are not excluded
--- NOTE | 2019-03-02 21:16 | RADIOLOGY REPORT (SQ) ---
EXAM DESCRIPTION: CT HEAD WITHOUT IV CONTRAST COMPLETED DATE/TME: 03/02/2019 19:39 CLINICAL HISTORY: 38 years Male altered mental status COMPARISON: None. TECHNIQUE: Contiguous axial CT images obtained through the brain without IV contrast. This exam was performed according to our department optimization program which includes automated exposure control, adjustment of the mA and/or kv according to patient size and/or use of iterative reconstruction technique. FINDINGS: The ventricles and sulci are within normal limits for the patient's age. No midline shift or mass effect. No masses identified. No acute intracranial hemorrhage. No fluid or significant mucosal thickening in the visualized paranasal sinuses. No depressed calvarial fractures. IMPRESSION: No acute intracranial abnormality is identified.
[2019-03-02] MEDS ORDERED: DEXTROSE 40% GEL 15 GM TUBE PO PRN ×2 (21:58)
[2019-03-02] MEDS ORDERED: ACETAMINOPHEN 650 MG SUPP.RECT PR PRN (21:58)
[2019-03-02] MEDS ORDERED: DEXTROSE 50%-WATER 25 GM/50 ML DISP.SYRIN IV PRN ×2 (21:58)
[2019-03-02] MEDS ORDERED: GLUCAGON,HUMAN RECOMB 1 MG INJ SUBCUT PRN (21:58)
[2019-03-02] MEDS ORDERED: ONDANSETRON HCL INJ/PF 4 MG/2 ML SDV IV PRN (21:58)
[2019-03-02] MEDS ORDERED: CHLORPROMAZINE HCL INJ 25 MG/1 ML AMPULE IV PRN (22:05)
[2019-03-02] MEDS ORDERED: HYDRALAZINE HCL INJ/PF 20 MG/1 ML SDV IV PRN (22:05)
[2019-03-02] MEDS ORDERED: DEXTROSE 5%-WATER 1000 ML 1,000 ML with SODIUM BICARBONATE 150 MEQ IV PRN ×2 (22:08)
[2019-03-02 22:38] LABS: APPEARANCE,URINE SLIGHTLY-CLOUDY; BILIRUBIN,URINE NEGATIVE (NEGATIVE); COLOR,URINE YELLOW; GLUCOSE, URINE NEGATIVE (NEGATIVE); KETONES,URINE 20 mg/dL (NEGATIVE); LEUKOCYTE ESTERASE,URINE NEGATIVE (NEGATIVE); NITRITE,URINE NEGATIVE (NEGATIVE); PROTEIN,URINE NEGATIVE (NEGATIVE); URINE SPECIFIC GRAVITY 1.018; UROBILINOGEN,URINE NEGATIVE mg/dL (<2.0)
[2019-03-02 22:48] LABS: URINE BARBITURATES SCREEN NEGATIVE; URINE BENZODIAZEPINES SCREEN UNCONFIRMED POSITIVE; URINE COCAINE SCREEN NEGATIVE; URINE MARIJUANA (THC) SCREEN NEGATIVE; URINE METHADONE SCREEN NEGATIVE; URINE PHENCYCLIDINE SCREEN NEGATIVE
[2019-03-02] MEDS ORDERED: ACETYLCYSTEINE 20% SOLN 800 MG/4 ML VIAL.NEB NEB ONE (23:00)
[2019-03-02] MEDS ORDERED: PANTOPRAZOLE SODIUM 40 MG VIAL IV ONE (23:00)
[2019-03-03] MEDS: RINGERS SOLUTION,LACTATED 1,000 ML IV PRN ×4 (00:27→18:31)
[2019-03-03] MEDS ORDERED: SODIUM BICARBONATE 8.4% INJ 50 MEQ/50 ML DISP.SYRIN ONE (01:07)
[2019-03-03] MEDS ORDERED: PANTOPRAZOLE SODIUM 40 MG VIAL IV ONE (01:19)
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
[2019-03-03 02:32] LABS: ABSOLUTE LYMPHOCYTES (AUTO) 1.8 10^3/uL (0.5-4.7); ABSOLUTE MONOCYTES (AUTO) 0.8 10^3/uL (0.1-1.4); ABSOLUTE NEUT (AUTO) 8.8 10^3/uL (1.7-8.2); BASOPHILS % (AUTO) 0.2 % (0-2); HEMATOCRIT 35.2 % (37.9-51.0); LYMPHOCYTES % (AUTO) 16.1 % (13-45); MEAN CORPUSCULAR HEMOGLOBIN 29.8 pg (27.0-33.4); MEAN CORPUSCULAR HGB CONC 34.1 g/dL (32.0-36.0); MEAN CORPUSCULAR VOLUME 87 fl (80-97); MONOCYTES % (AUTO) 6.9 % (3-13); PLATELET COUNT 174 10^3/uL (150-450); RED BLOOD COUNT 4.03 10^6/uL (4.35-5.55); RED CELL DISTRIBUTION WIDTH 14.1 % (11.5-14.0); SEGMENTED NEUTROPHILS % (AUTO) 76.8 % (42-78); TOTAL CELLS COUNTED % (AUTO) 100 %; WHITE BLOOD COUNT 11.5 10^3/uL (4.0-10.5)
[2019-03-03 02:38] LABS: VENOUS BLOOD BASE EXCESS -1.6 mmol/L; VENOUS BLOOD HCO3 22.8 mmol/L (20-32); VENOUS BLOOD PCO2 37.4 mmHg (35-63); VENOUS BLOOD PH 7.4 (7.30-7.42)
[2019-03-03 02:56] LABS: ALANINE AMINOTRANSFERASE 112 U/L (21-72); ALBUMIN 3.1 g/dL (3.5-5.0); ALKALINE PHOSPHATASE 60 U/L (38-126); ASPARTATE AMINO TRANSFERASE 178 U/L (17-59); BILIRUBIN,DIRECT 0.3 mg/dL (0.0-0.4); BILIRUBIN,TOTAL 0.7 mg/dL (0.2-1.3); TOTAL PROTEIN 5.5 g/dL (6.3-8.2)
[2019-03-03 03:05] LABS: ANION GAP 7 (5-19); BLOOD UREA NITROGEN 44 mg/dL (7-20); CALCIUM 8.1 mg/dL (8.4-10.2); CARBON DIOXIDE 23 mmol/L (22-30); CHLORIDE 107 mmol/L (98-107); GLUCOSE 155 mg/dL (75-110); POTASSIUM 4.2 mmol/L (3.6-5.0)
[2019-03-03 04:11] LABS: ARTERIAL BLOOD BASE EXCESS 0.9 mmol/L; ARTERIAL BLOOD H2CO3 1.06 mmol/L (1.05-1.35); ARTERIAL BLOOD HCO3 24.4 mmol/L (20-24); ARTERIAL BLOOD O2 SATURATION 98.5 % (94-98); ARTERIAL BLOOD PCO2 35.2 mmHg (35-45); ARTERIAL BLOOD PH 7.46 (7.35-7.45); ARTERIAL BLOOD PO2 119.7 mmHg (80-100); ARTERIAL BLOOD TOTAL CO2 25.5 mmol/L (23-27)
[2019-03-03 04:15] LABS: ARTERIAL BLOOD FIO2 21%
[2019-03-03] MEDS: HEPARIN SOD (PORCINE) 5,000 UNIT/ML 1 ML SYRINGE SUBCUT SCH ×3 (05:30→21:58)
--- NOTE | 2019-03-03 07:42 | EKG REPORT ---
SEVERITY:- BORDERLINE ECG - SINUS TACHYCARDIA BORDERLINE PROLONGED QT INTERVAL : Confirmed by: Ashok Arteaga MD 03-Mar-2019 07:42:18
[2019-03-03] MEDS: ACETYLCYSTEINE 20% SOLN 800 MG/4 ML VIAL.NEB NEB SCH ×2 (08:29→20:27)
[2019-03-03] MEDS: LEVALBUTEROL HCL NEB 0.63 MG/3 ML AMPUL NEB PRN ×2 (08:30→20:26)
[2019-03-03] MEDS: PANTOPRAZOLE SODIUM 40 MG VIAL IV SCH ×2 (09:27→21:58)
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
--- NOTE | 2019-03-03 12:37 | RADIOLOGY REPORT (SQ) ---
EXAM DESCRIPTION: SHOULDER RIGHT 2 OR MORE VIEWS COMPLETED DATE/TIME: 03/03/2019 11:55 am REASON FOR STUDY: RUE pain COMPARISON: None. NUMBER OF VIEWS: Three views. TECHNIQUE: Internal rotation, external rotation, and Y view images acquired of the right shoulder. LIMITATIONS: None. FINDINGS: MINERALIZATION: Normal. BONES: No fracture or dislocation. There is a small sclerotic lesion in the humeral head, likely [place]. JOINTS: No dislocation. VISUALIZED LUNGS AND RIBS: No pneumothorax. No rib fracture. SOFT TISSUES: No radiopaque foreign body. OTHER: No other significant finding. IMPRESSION: NEGATIVE STUDY OF THE RIGHT SHOULDER. NO RADIOGRAPHIC EVIDENCE OF ACUTE INJURY. TECHNICAL DOCUMENTATION: JOB ID: [id number] [employer]- All Rights Reserved Reading location - IP/workstation name: [email or web address]
--- NOTE | 2019-03-03 12:41 | RADIOLOGY REPORT (SQ) ---
EXAM DESCRIPTION: ELBOW RIGHT OVER 2 VIEWS COMPLETED DATE/TIME: 03/03/2019 11:55 am REASON FOR STUDY: RUE pain COMPARISON: None. NUMBER OF VIEWS: Four views. TECHNIQUE: AP, lateral, and both oblique radiographic images acquired of the right elbow. LIMITATIONS: None. FINDINGS: MINERALIZATION: Normal. BONES: No acute fracture or dislocation. No worrisome bone lesions. JOINT: No effusion. SOFT TISSUES: A vascular catheter is present. The soft tissues are otherwise unremarkable. OTHER: No other significant finding. IMPRESSION: No evidence of acute osseous injury. Vascular access catheter without evidence of gross complication. TECHNICAL DOCUMENTATION: JOB ID: [id number] [employer]- All Rights Reserved Reading location - IP/workstation name: [email or web address]
--- NOTE | 2019-03-03 13:12 | RADIOLOGY REPORT (SQ) ---
EXAM DESCRIPTION: CT CERVICAL SPINE WITHOUT COMPLETED DATE/TIME: 03/03/2019 12:51 pm REASON FOR STUDY: neck pain, fall COMPARISON: None. TECHNIQUE: Axial images acquired through the cervical spine without intravenous contrast. Images re viewed with lung, soft tissue and bone windows. Reconstructed coronal and sagittal MPR images review ed. Images stored on PACS. All CT scanners at this facility use dose modulation, iterative reconstruction, and/or weight based d osing when appropriate to reduce radiation dose to as low as reasonably achievable (ALARA). [facility]: Dose Right [facility]: CareDose [facility]: Dose Right [facility]: Teradose 4D [facility]: Smart [id number] RADIATION DOSE: CT Rad equipment meets quality standard of care and radiation dose reduction techniq ues were employed. CTDIvol: 20.1 mGy. DLP: 445 mGy-cm. mGy. LIMITATIONS: None. FINDINGS: ALIGNMENT: Anatomic. MINERALIZATION: Normal. VERTEBRAL BODIES: No fractures or dislocation. DISCS: Disc narrowing from C4 to C6. Marginal osteophytes. Narrowing of the left neural foramen at C5-6 secondary to uncovertebral osteophytes. FACETS, LATERAL MASSES, POSTERIOR ELEMENTS: No fractures. No dislocation. No acute findings. HARDWARE: None in the spine. VISUALIZED RIBS: No fractures. LUNG APICES AND SOFT TISSUES: No significant or acute findings. OTHER: No other significant finding. IMPRESSION: Degenerative disc disease and spondylosis. No acute finding. TECHNICAL DOCUMENTATION: JOB ID: [id number] Quality ID # [id number]: Final reports with documentation of one or more dose reduction techniques (e.g., Au tomated exposure control, adjustment of the mA and/or kV according to patient size, use of iterative reconstruction technique) 2010 [employer]- All Rights Reserved Reading location - IP/workstation name: [email or web address]
[2019-03-03] MEDS: OXYCODONE-ACETAMINOPHEN 5-325 MG TABLET PO PRN (14:23)
--- NOTE | 2019-03-03 15:48 | RADIOLOGY REPORT (SQ) ---
EXAM DESCRIPTION: VENOUS UNILATERAL UPPER COMPLETED DATE/TIME: 03/03/2019 3:39 pm REASON FOR STUDY: RUE pain COMPARISON: None. TECHNIQUE: Dynamic and static aquino scale and color images acquired of the right arm venous system. S elected spectral images acquired with additional compression and augmentation maneuvers. The contrala teral subclavian vein and internal jugular vein were also imaged. Images stored on PACS. LIMITATIONS: None. FINDINGS: INTERNAL JUGULAR VEIN: Normal phasicity, compression, augmentation. No visualized echogeni c material on aquino scale. No defects on color images. Comparison opposite side normal. SUBCLAVIAN VEIN: Normal compression, augmentation. No visualized echogenic material on aquino scale. No defects on color images. AXILLARY VEIN: Normal compression, augmentation. No visualized echogenic material on aquino scale. No d efects on color images. BRACHIAL VEIN: Normal compression, augmentation. No visualized echogenic material on aquino scale. No d efects on color images. BASILIC VEIN: Normal compression, augmentation. No visualized echogenic material on aquino scale. No de fects on color images. CEPHALIC VEIN: Normal compression, augmentation. No visualized echogenic material on aquino scale. No d efects on color images. OTHER: No other significant finding. CONTRALATERAL SUBCLAVIAN VEIN AND INTERNAL JUGULAR VEIN: Normal phasicity, compression and augmentation. No visualized echogenic material on aquino scale. No de fects on color images. IMPRESSION: NO EVIDENCE DVT OR SVT IN THE RIGHT ARM. TECHNICAL DOCUMENTATION: JOB ID: [id number] [employer]- All Rights Reserved Reading location - IP/workstation name: [email or web address]
[2019-03-03] MEDS: KETOROLAC TROMETHAMINE INJ/PF 30 MG/1 ML SDV IV PRN (16:56)
[2019-03-03] MEDS: CEFTRIAXONE SODIUM 1,000 MG in DEXTROSE 5%-WATER 50 ML IV SCH (17:00)
--- NOTE | 2019-03-03 18:19 | PSYCHOLOGICAL NOTE ---
Psych Note - Psych Note Date seen by psych provider: 03/03/19 Time seen by psych provider: 17:40 Psych Note: Reason for Consult: overdose Consent permissions: did not provide RAQUEL WOODSON is a 38 year old male who presented to the emergency room via EMS with acutely altered mental status (obtunded). Patient disclosed that his overdose "was not even my fault... My friend gave me some pills because of my anxiety and depression." He reports that he was just attempting to self medicate. He reports that he has "no idea what my friend gave me." He denies current thoughts of wanting to harm himself. Patient has a history of chronic passive suicidal ideation (i.e. no plans means or intent) that comes and goes. He also has a long history of methamphetamine abuse with multiple [facility] ED visits after accidental overdose. He reports that the last time he had suicidal ideation was "last time I was in the ED... in the beginning of the month." He denies having difficulties with thoughts of harming himself since then. He reports that he has not successfully obtained treatment for his substance abuse stating that his mother and he have looked everywhere but have not been successful (Clinician notes patient insurance will not cover methamphetamine abuse treatment). Patient is alert and orientated to person, place, time and circumstance. Mood is euthymic with congruent affect. Patient denies suicidal and homicidal ideation. Delusions are absent behaviors congruent with an intact reality based presentation i.e. organized linear thought process. Eye contact was well- maintained. Conversational speech is within normal rate, tone and prosody. Intellectual abilities appear to be within the average range. Attention and concentration are good. Insight, judgment, impulse control are historically poor for this patient. Clinician notes patient is eating during evaluation and only uses his right arm/hand. No medication recommendations at this time 292.9 (F15.99) unspecified stimulant related disorder;meth Substance induced depressive disorder Impression/plan: Patient is cleared from acute psychiatric services. Patient is well known to this clinician and department. Patient has a history of substance abuse and passive suicidal ideation ie no plans means or intent. Patient is unable to remember what he took, stating his friend gave him some medication to help self medicate his anxiety and depression. Patient denies current suicidal ideation and reports he has not had any difficulties with thought of harming himself for the last 2 weeks. He denies taking the medication in an attempt to harm himself. Patient does not meet IVC criteria per [place] GS 122C. Patient states he is interested in substance abuse treatment but has had difficulties obtaining treatment. Please contact the behavioral health team prior to discharge for assistance in continued substance treatment; this is a voluntary treatment. Dr. Cotton was consulted on the care and management of this patient; attending physician is in agreement with recommendations and disposition.
[2019-03-03] MEDS: TRAZODONE HCL 50 MG TABLET PO SCH (23:41)
[2019-03-04] MEDS ORDERED: RINGERS SOLUTION,LACTATED 1,000 ML IV ONE (00:30)
[2019-03-04] MEDS: RINGERS SOLUTION,LACTATED 1,000 ML IV PRN ×6 (01:39→20:52)
[2019-03-04] MEDS: OXYCODONE-ACETAMINOPHEN 5-325 MG TABLET PO PRN ×2 (03:00→20:33)
[2019-03-04 04:22] LABS: ABSOLUTE LYMPHOCYTES (AUTO) 1.3 10^3/uL (0.5-4.7); ABSOLUTE MONOCYTES (AUTO) 0.4 10^3/uL (0.1-1.4); ABSOLUTE NEUT (AUTO) 3.5 10^3/uL (1.7-8.2); BASOPHILS % (AUTO) 0.5 % (0-2); EOSINOPHILS % (AUTO) 0.8 % (0-6); HEMATOCRIT 32.1 % (37.9-51.0); HEMOGLOBIN 10.9 g/dL (13.5-17.0); LYMPHOCYTES % (AUTO) 24.8 % (13-45); MEAN CORPUSCULAR HEMOGLOBIN 30.2 pg (27.0-33.4); MEAN CORPUSCULAR HGB CONC 34.1 g/dL (32.0-36.0); MEAN CORPUSCULAR VOLUME 89 fl (80-97); MONOCYTES % (AUTO) 8.3 % (3-13); PLATELET COUNT 142 10^3/uL (150-450); RED BLOOD COUNT 3.62 10^6/uL (4.35-5.55); RED CELL DISTRIBUTION WIDTH 14.5 % (11.5-14.0); SEGMENTED NEUTROPHILS % (AUTO) 65.6 % (42-78); TOTAL CELLS COUNTED % (AUTO) 100 %; WHITE BLOOD COUNT 5.3 10^3/uL (4.0-10.5)
[2019-03-04 04:40] LABS: ALANINE AMINOTRANSFERASE 127 U/L (21-72); ALBUMIN 2.5 g/dL (3.5-5.0); ALKALINE PHOSPHATASE 57 U/L (38-126); ASPARTATE AMINO TRANSFERASE 168 U/L (17-59); BILIRUBIN,DIRECT 0.2 mg/dL (0.0-0.4); BILIRUBIN,TOTAL 0.6 mg/dL (0.2-1.3); BLOOD UREA NITROGEN 17 mg/dL (7-20); CALCIUM 8.1 mg/dL (8.4-10.2); GLUCOSE 97 mg/dL (75-110); TOTAL PROTEIN 4.8 g/dL (6.3-8.2)
[2019-03-04 04:45] LABS: POTASSIUM 3.7 mmol/L (3.6-5.0)
[2019-03-04 04:46] LABS: ANION GAP 5 (5-19); CARBON DIOXIDE 29 mmol/L (22-30); CHLORIDE 104 mmol/L (98-107); SODIUM 137.9 mmol/L (137-145)
[2019-03-04] MEDS: HEPARIN SOD (PORCINE) 5,000 UNIT/ML 1 ML SYRINGE SUBCUT SCH ×3 (05:03→21:28)
--- NOTE | 2019-03-04 08:14 | RADIOLOGY REPORT (SQ) ---
EXAM DESCRIPTION: CHEST 2 VIEWS COMPLETED DATE/TIME: 03/04/2019 1:33 am REASON FOR STUDY: ?PNA on portable (poor inspiratory effort) COMPARISON: 03/02/2019. EXAM PARAMETERS: NUMBER OF VIEWS: two views TECHNIQUE: Digital Frontal and Lateral radiographic views of the chest acquired. RADIATION DOSE: NA LIMITATIONS: none FINDINGS: LUNGS AND PLEURA: Slight improvement in the basilar airspace disease. Small pleural effus ions. MEDIASTINUM AND HILAR STRUCTURES: No masses or contour abnormalities. HEART AND VASCULAR STRUCTURES: Heart normal size. No evidence for failure. BONES: No acute findings. HARDWARE: None in the chest. OTHER: No other significant finding. IMPRESSION: BASILAR AIRSPACE DISEASE SLIGHTLY IMPROVED. SMALL PLEURAL EFFUSIONS. TECHNICAL DOCUMENTATION: JOB ID: [id number] [employer]- All Rights Reserved Reading location - IP/workstation name: [email or web address]
[2019-03-04] MEDS: ACETYLCYSTEINE 20% SOLN 800 MG/4 ML VIAL.NEB NEB SCH ×2 (08:43→20:23)
[2019-03-04] MEDS: LEVALBUTEROL HCL NEB 0.63 MG/3 ML AMPUL NEB PRN ×2 (08:44→20:23)
[2019-03-04] MEDS: MORPHINE SULFATE 10 MG/ML INJ IV PRN ×2 (08:57→12:55)
[2019-03-04] MEDS ORDERED: CEFTRIAXONE 1 GM/D5W RTU 1 GM/50 ML RTUPB IV SCH (10:00)
[2019-03-04] MEDS: PANTOPRAZOLE SODIUM 40 MG VIAL IV SCH ×2 (10:25→21:27)
[2019-03-04] MEDS: [UNRECOGNIZED DRUG - OTHER] PO SCH (10:26)
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
[2019-03-04] MEDS: KETOROLAC TROMETHAMINE INJ/PF 30 MG/1 ML SDV IV PRN (17:01)
[2019-03-04] MEDS ORDERED: LORAZEPAM 1 MG TABLET PO PRN (17:31)
[2019-03-04] MEDS: CEFTRIAXONE SODIUM 1,000 MG in DEXTROSE 5%-WATER 50 ML IV SCH (18:52)
[2019-03-04] MEDS: BUSPIRONE HCL 10 MG TABLET PO SCH (21:27)
[2019-03-04] MEDS: TRAZODONE HCL 50 MG TABLET PO SCH (21:27)
[2019-03-05] MEDS: RINGERS SOLUTION,LACTATED 1,000 ML IV PRN (01:15)
[2019-03-05 03:54] LABS: ABSOLUTE EOSINOPHILS # (AUTO) 0.1 10^3/uL (0.0-0.6); ABSOLUTE LYMPHOCYTES (AUTO) 1.3 10^3/uL (0.5-4.7); ABSOLUTE MONOCYTES (AUTO) 0.3 10^3/uL (0.1-1.4); ABSOLUTE NEUT (AUTO) 2.3 10^3/uL (1.7-8.2); BASOPHILS % (AUTO) 0.5 % (0-2); EOSINOPHILS % (AUTO) 1.6 % (0-6); HEMATOCRIT 34.4 % (37.9-51.0); HEMOGLOBIN 11.6 g/dL (13.5-17.0); LYMPHOCYTES % (AUTO) 31.5 % (13-45); MEAN CORPUSCULAR HEMOGLOBIN 29.9 pg (27.0-33.4); MEAN CORPUSCULAR HGB CONC 33.9 g/dL (32.0-36.0); MEAN CORPUSCULAR VOLUME 88 fl (80-97); PLATELET COUNT 147 10^3/uL (150-450); RED BLOOD COUNT 3.89 10^6/uL (4.35-5.55); RED CELL DISTRIBUTION WIDTH 14.2 % (11.5-14.0); SEGMENTED NEUTROPHILS % (AUTO) 58.4 % (42-78); TOTAL CELLS COUNTED % (AUTO) 100 %
[2019-03-05 04:13] LABS: ALANINE AMINOTRANSFERASE 104 U/L (21-72); ALBUMIN 2.6 g/dL (3.5-5.0); ALKALINE PHOSPHATASE 57 U/L (38-126); ANION GAP 6 (5-19); ASPARTATE AMINO TRANSFERASE 121 U/L (17-59); BILIRUBIN,DIRECT 0.3 mg/dL (0.0-0.4); BILIRUBIN,TOTAL 0.6 mg/dL (0.2-1.3); BLOOD UREA NITROGEN 6 mg/dL (7-20); CALCIUM 8.3 mg/dL (8.4-10.2); CARBON DIOXIDE 29 mmol/L (22-30); CHLORIDE 105 mmol/L (98-107); CREATINE KINASE 970 U/L (55-170); GLUCOSE 79 mg/dL (75-110); SODIUM 139.7 mmol/L (137-145); TOTAL PROTEIN 5.1 g/dL (6.3-8.2)
[2019-03-05] MEDS: HEPARIN SOD (PORCINE) 5,000 UNIT/ML 1 ML SYRINGE SUBCUT SCH ×3 (06:31→21:05)
[2019-03-05] MEDS: OXYCODONE-ACETAMINOPHEN 5-325 MG TABLET PO PRN ×3 (08:21→21:08)
[2019-03-05] MEDS: ACETYLCYSTEINE 20% SOLN 800 MG/4 ML VIAL.NEB NEB SCH ×2 (08:39→20:40)
[2019-03-05] MEDS: PANTOPRAZOLE SODIUM 40 MG VIAL IV SCH ×2 (10:35→21:10)
[2019-03-05] MEDS: BUSPIRONE HCL 10 MG TABLET PO SCH ×2 (10:35→21:09)
[2019-03-05] MEDS: [UNRECOGNIZED DRUG - OTHER] PO SCH (10:36)
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
[2019-03-05] MEDS: TRAZODONE HCL 50 MG TABLET PO SCH (21:09)
[2019-03-05] MEDS: CEFTRIAXONE SODIUM 1,000 MG in DEXTROSE 5%-WATER 50 ML IV SCH (22:30)
[2019-03-06] MEDS: HEPARIN SOD (PORCINE) 5,000 UNIT/ML 1 ML SYRINGE SUBCUT SCH ×3 (05:13→21:11)
[2019-03-06 08:44] LABS: ABSOLUTE EOSINOPHILS # (AUTO) 0.1 10^3/uL (0.0-0.6); ABSOLUTE LYMPHOCYTES (AUTO) 0.8 10^3/uL (0.5-4.7); ABSOLUTE MONOCYTES (AUTO) 0.3 10^3/uL (0.1-1.4); ABSOLUTE NEUT (AUTO) 3.9 10^3/uL (1.7-8.2); BASOPHILS % (AUTO) 0.4 % (0-2); EOSINOPHILS % (AUTO) 1.8 % (0-6); HEMOGLOBIN 12.5 g/dL (13.5-17.0); MEAN CORPUSCULAR HEMOGLOBIN 30.1 pg (27.0-33.4); MEAN CORPUSCULAR HGB CONC 33.7 g/dL (32.0-36.0); MEAN CORPUSCULAR VOLUME 89 fl (80-97); MONOCYTES % (AUTO) 6.4 % (3-13); PLATELET COUNT 175 10^3/uL (150-450); RED BLOOD COUNT 4.15 10^6/uL (4.35-5.55); SEGMENTED NEUTROPHILS % (AUTO) 75.4 % (42-78); TOTAL CELLS COUNTED % (AUTO) 100 %; WHITE BLOOD COUNT 5.2 10^3/uL (4.0-10.5)
[2019-03-06] MEDS: LEVALBUTEROL HCL NEB 0.63 MG/3 ML AMPUL NEB PRN (08:49)
[2019-03-06] MEDS: ACETYLCYSTEINE 20% SOLN 800 MG/4 ML VIAL.NEB NEB SCH ×2 (08:49→20:44)
[2019-03-06 09:03] LABS: ALANINE AMINOTRANSFERASE 100 U/L (21-72); ALKALINE PHOSPHATASE 61 U/L (38-126); ANION GAP 7 (5-19); ASPARTATE AMINO TRANSFERASE 85 U/L (17-59); BILIRUBIN,DIRECT 0.2 mg/dL (0.0-0.4); BILIRUBIN,TOTAL 0.4 mg/dL (0.2-1.3); BLOOD UREA NITROGEN 5 mg/dL (7-20); CALCIUM 8.4 mg/dL (8.4-10.2); CARBON DIOXIDE 26 mmol/L (22-30); CHLORIDE 104 mmol/L (98-107); CREATINE KINASE 405 U/L (55-170); GLUCOSE 143 mg/dL (75-110); POTASSIUM 3.5 mmol/L (3.6-5.0); SODIUM 137.1 mmol/L (137-145); TOTAL PROTEIN 5.7 g/dL (6.3-8.2)
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
[2019-03-06] MEDS: NICOTINE 14 MG/24 HR PATCH.TD24 TD SCH (09:31)
[2019-03-06] MEDS: BUSPIRONE HCL 10 MG TABLET PO SCH ×2 (09:31→21:12)
[2019-03-06] MEDS: [UNRECOGNIZED DRUG - OTHER] PO SCH (09:32)
[2019-03-06] MEDS: GUAIFENESIN/CODEINE PHOS 100-10 MG/ 5 ML UDC PO PRN ×2 (09:32→17:14)
[2019-03-06 13:36] LABS: HEPATITIS A AB IGM Negative (Negative); HEPATITIS B CORE AB IGM Negative (Negative)
[2019-03-06 14:23] LABS: HEPATITIS C VIRUS ANTIBODY <0.1 s/co ratio (0.0-0.9); HEPATITS B SURFACE ANTIGEN Positive (Negative)
[2019-03-06] MEDS: ACETAMINOPHEN 325 MG TABLET PO PRN ×2 (14:45→21:12)
[2019-03-06] MEDS: CEFTRIAXONE SODIUM 1,000 MG in DEXTROSE 5%-WATER 50 ML IV SCH (17:14)
[2019-03-06] MEDS: TRAZODONE HCL 50 MG TABLET PO SCH (21:12)
[2019-03-07] MEDS: HEPARIN SOD (PORCINE) 5,000 UNIT/ML 1 ML SYRINGE SUBCUT SCH ×2 (05:04→13:52)
[2019-03-07] MEDS: ACETAMINOPHEN 325 MG TABLET PO PRN (05:30)
[2019-03-07] MEDS: GUAIFENESIN/CODEINE PHOS 100-10 MG/ 5 ML UDC PO PRN (05:32)
[2019-03-07 05:57] LABS: ABSOLUTE EOSINOPHILS # (AUTO) 0.3 10^3/uL (0.0-0.6); ABSOLUTE LYMPHOCYTES (AUTO) 1.2 10^3/uL (0.5-4.7); ABSOLUTE MONOCYTES (AUTO) 0.4 10^3/uL (0.1-1.4); ABSOLUTE NEUT (AUTO) 2.5 10^3/uL (1.7-8.2); BASOPHILS % (AUTO) 0.8 % (0-2); EOSINOPHILS % (AUTO) 5.9 % (0-6); HEMATOCRIT 37.6 % (37.9-51.0); HEMOGLOBIN 12.7 g/dL (13.5-17.0); LYMPHOCYTES % (AUTO) 28.1 % (13-45); MEAN CORPUSCULAR HEMOGLOBIN 29.8 pg (27.0-33.4); MEAN CORPUSCULAR HGB CONC 33.9 g/dL (32.0-36.0); MEAN CORPUSCULAR VOLUME 88 fl (80-97); MONOCYTES % (AUTO) 8.9 % (3-13); PLATELET COUNT 198 10^3/uL (150-450); RED BLOOD COUNT 4.28 10^6/uL (4.35-5.55); SEGMENTED NEUTROPHILS % (AUTO) 56.3 % (42-78); TOTAL CELLS COUNTED % (AUTO) 100 %; WHITE BLOOD COUNT 4.4 10^3/uL (4.0-10.5)
[2019-03-07 06:28] LABS: ALANINE AMINOTRANSFERASE 94 U/L (21-72); ALBUMIN 3.2 g/dL (3.5-5.0); ALKALINE PHOSPHATASE 63 U/L (38-126); ANION GAP 9 (5-19); ASPARTATE AMINO TRANSFERASE 61 U/L (17-59); BILIRUBIN,DIRECT 0.2 mg/dL (0.0-0.4); BILIRUBIN,TOTAL 0.3 mg/dL (0.2-1.3); BLOOD UREA NITROGEN 8 mg/dL (7-20); CALCIUM 8.7 mg/dL (8.4-10.2); CARBON DIOXIDE 24 mmol/L (22-30); CHLORIDE 108 mmol/L (98-107); CREATINE KINASE 204 U/L (55-170); GLUCOSE 90 mg/dL (75-110)
[2019-03-07] MEDS: ACETYLCYSTEINE 20% SOLN 800 MG/4 ML VIAL.NEB NEB SCH (08:13)
[2019-03-07] MEDS: BUSPIRONE HCL 10 MG TABLET PO SCH (09:06)
[2019-03-07] MEDS: NICOTINE 14 MG/24 HR PATCH.TD24 TD SCH (09:06)
[2019-03-07] MEDS: [UNRECOGNIZED DRUG - OTHER] PO SCH (09:07)
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
[2019-03-07 14:15] VITALS: BP 110/74
== END 2019-03-07 15:06 | disposition home or self-care (01) | DRG 682 ==
LOC: ER 17:13 → EH 21:10 → ICU 23:15 → 3W 03-05 23:02
PROVIDERS: ADMIT Emergency Medicine; ATTEND Emergency Medicine
DX: N17.9 Acute kidney failure, unspecified (principal); J18.9 Pneumonia, unspecified organism; M31.1 Thrombotic microangiopathy; B20 Human immunodeficiency virus [HIV] disease; E87.2 Acidosis; M62.82 Rhabdomyolysis; T50.901A Poisoning by unspecified drugs, medicaments and biological substances, accidental (unintentional), initial encounter; R41.82 Altered mental status, unspecified; D69.6 Thrombocytopenia, unspecified; R74.8 Abnormal levels of other serum enzymes; S01.511A Laceration without foreign body of lip, initial encounter; Y92.838 Other recreation area as the place of occurrence of the external cause
CPT/HCPCS: 36415; 70450; 71045; 71046; 72125; 80048; 80053; 80074; 80076; 80307; 81001; 82550; 82803; 83605; 83735; 85025; 87040; 93005; 93010; 93971; 94640; 96360; 96361; 99291; G0480; J0456; J0696; J1644; J1885; J2270; J3490; J7030; J7060; J7120; J7614; S0164